=== PATIENT | female | born 1995 | race Caucasian/White ===

== ENCOUNTER 2021-03-09 15:00 | Emergency (ER) ==
[~2021-03-09] VITALS: Ht 165.1 cm; Wt 55.5 kg
[2021-03-09 15:07] VITALS: BP 116/63
== END 2021-03-09 17:26 | disposition left against medical advice (07) ==
LOC: M ED 15:00
DX: Z53.21 Procedure and treatment not carried out due to patient leaving prior to being seen by health care provider (principal)

== ENCOUNTER 2021-10-18 07:32 | Inpatient (IN) | payer OTHER ==
[2021-10-18] VITALS (8 sets, daily range): BP systolic 112–129; BP diastolic 55–80
[~2021-10-18] VITALS: Ht 160 cm; Wt 59.0 kg
[~2021-10-18 07:32] MED LIST: ACET-683 PO; ACET325C5 PO; CALC1TAB30 PO; CEPH500T PO; IRON65TA2 PO; NITR-67 PO; PRENTAB9 PO
[2021-10-18] MEDS ORDERED: PURE500C5 PO (08:24)
[2021-10-18] MEDS ORDERED: ACET-897 PO (08:25)
[2021-10-18] MEDS ORDERED: HOME MED LIST COMPLETE! XX SCH (08:25)
[2021-10-18 08:33] LABS: HEMOGLOBIN 11.9 g/dl (12.0-15.5); MEAN CORPUSCULAR HEMOGLOBIN 29.7 pg (27.0-33.0); MEAN CORPUSCULAR VOLUME 87.3 fl (80.0-96.0); PLATELET COUNT, AUTOMATED 297 10^3/uL (150-450); RED BLOOD COUNT 4.01 10^6/uL (4.00-5.40)
[2021-10-18] MEDS ORDERED: BICITRA 30ML SOLN UDC PO ONE (08:50)
[2021-10-18] MEDS ORDERED: ceFAZolin SOD 2 GM in IV 1 EA IV ONE (08:50)
[2021-10-18] MEDS ORDERED: LR 1,000 ML IV ONE (08:50)
[2021-10-18] MEDS: PRENATAL VITAMINS CHEWABLE TABLET PO SCH (09:00)
[2021-10-18] MEDS ORDERED: KETOROLAC 60MG 2ML VIAL As Ordered ONE (09:12)
[2021-10-18] MEDS ORDERED: MORPHINE PRES-FREE INJ 10 MG/10 ML VIAL As Ordered ONE (09:12)
[2021-10-18] MEDS ORDERED: ONDANSETRON 4MG 2ML VIAL As Ordered ONE ×2 (09:12→09:16)
[2021-10-18] MEDS ORDERED: OXYTOCIN INJ 10 UNITS/ML VIAL (J2590) As Ordered ONE (09:12)
[2021-10-18] MEDS ORDERED: dexameTHASONE 4 MG/ML 1ML VIAL (J1100 PER 1MG) As Ordered ONE (09:12)
[2021-10-18] MEDS ORDERED: fentaNYL 100 MCG/2 ML INJECTION As Ordered ONE (09:12)
[2021-10-18] MEDS: LR 1,000 ML IV SCH ×2 (09:13→16:48)
[2021-10-18] MEDS ORDERED: PHENYLephrine 500MCG 5ML (100MCG/ML) SYRINGE As Ordered ONE (10:38)
[2021-10-18] MEDS ORDERED: ePHEDrine SULFATE 25 MG/5 ML(5MG/ML) SYRINGE As Ordered ONE (10:38)
[2021-10-18 10:52] LABS: CORD GAS ABE V -4.2; CORD GAS PCO2 V 39.1 mmHg; CORD GAS PH V 7.348 UNITS; CORD GAS PO2 V 25.3 mmHg; CORD GAS SBC V 20.2 MEQ/L; CORD GAS TCO2 V 22.2 MEQ/L
[2021-10-18 10:55] LABS: CORD GAS ABE A -6.6; CORD GAS HCO3 A 20.2 MEQ/L; CORD GAS O2 SAT A 15.4 %; CORD GAS PH A 7.27 UNITS; CORD GAS PO2 A 10.4 mmHg; CORD GAS SBC A 17.3 MEQ/L; CORD GAS TCO2 A 21.6 MEQ/L
[2021-10-18] MEDS ORDERED: ONDANSETRON 4MG TAB PO PRN (11:10)
[2021-10-18] MEDS ORDERED: MOM 30ML SUSPENSION UDC PO PRN (11:10)
[2021-10-18] MEDS ORDERED: SIMETHICONE 80MG CHEW TAB PO PRN (11:10)
[2021-10-18] MEDS ORDERED: psoriasis cream TOP (11:52)
[2021-10-18] MEDS: KETOROLAC 30 MG/ML 1ML VIAL IV SCH ×2 (16:48→22:49)
[2021-10-18] MEDS: DOCUSATE SODIUM 100MG CAPSULE PO SCH (21:28)
[2021-10-19] VITALS (7 sets, daily range): BP systolic 112–140; BP diastolic 56–81
[2021-10-19] MEDS: KETOROLAC 30 MG/ML 1ML VIAL IV SCH (04:56)
[2021-10-19 07:56] LABS: HEMATOCRIT 25.5 % (36.0-47.0); MEAN CORPUSCULAR HEMOGLOBIN 30.5 pg (27.0-33.0); MEAN CORPUSCULAR HGB CONC 33.7 g/dl (32.0-36.5); MEAN CORPUSCULAR VOLUME 90.4 fl (80.0-96.0); PLATELET COUNT, AUTOMATED 252 10^3/uL (150-450); RED BLOOD COUNT 2.82 10^6/uL (4.00-5.40)
[2021-10-19] MEDS: DOCUSATE SODIUM 100MG CAPSULE PO SCH ×2 (07:56→20:08)
[2021-10-19] MEDS: PRENATAL VITAMINS CHEWABLE TABLET PO SCH (07:56)
[2021-10-19 08:03] LABS: HEMOGLOBIN 8.6 g/dl (12.0-15.5)
[2021-10-19] MEDS: IBUPROFEN 800 MG TAB PO SCH ×3 (13:00→23:30)
[2021-10-19] MEDS: oxyCODONE 5MG TAB PO PRN ×2 (14:44→20:09)
[2021-10-20 02:00] VITALS: BP 123/79
[2021-10-20] MEDS: oxyCODONE 5MG TAB PO PRN ×2 (02:16→07:51)
[2021-10-20 06:00] VITALS: BP 124/67
[2021-10-20] MEDS ORDERED: IBUP80TA PO (07:04)
[2021-10-20] MEDS ORDERED: PRENCHW PO (07:04)
[2021-10-20] MEDS ORDERED: COLA100C5 PO (07:04)
[2021-10-20] MEDS ORDERED: OXYC-517 PO (07:04)
[2021-10-20] MEDS: DOCUSATE SODIUM 100MG CAPSULE PO SCH (07:50)
[2021-10-20] MEDS: PRENATAL VITAMINS CHEWABLE TABLET PO SCH (07:50)
[2021-10-20] MEDS: IBUPROFEN 800 MG TAB PO SCH (07:50)
== END 2021-10-20 12:20 | disposition home or self-care (01) | DRG 773 ==
LOC: M LDI 07:32 → M OBS 12:20
PROVIDERS: ADMIT Obstetrics & Gynecology; ATTEND Obstetrics & Gynecology
PROC: 10D00Z1 Extraction of Products of Conception, Low, Open Approach (ICD-10-PCS; principal; 2021-10-18 09:30)
DX: O69.81X0 Labor and delivery complicated by cord around neck, without compression, not applicable or unspecified (principal); Z37.0 Single live birth; O99.344 Other mental disorders complicating childbirth; F32.A Depression, unspecified; F41.9 Anxiety disorder, unspecified; F43.10 Post-traumatic stress disorder, unspecified; O99.02 Anemia complicating childbirth; Z3A.39 39 weeks gestation of pregnancy

== ENCOUNTER → 2022-01-16 | Outpatient (REF) | payer OTHER ==
[~2022-01-16] MED LIST changes: +ACET-897 PO; +ASCO500C3 PO; +COLA100C5 PO; +IBUP80TA PO; +OXYC-517 PO; +PRENCHW PO; +psoriasis cream TOP
== END ==
LOC: M PLALAB 16:35
PROVIDERS: ATTEND Advanced Practice Midwife
DX: Z53.9 Procedure and treatment not carried out, unspecified reason (principal)

== ENCOUNTER → 2022-01-16 | Outpatient (REF) | payer OTHER ==
[2022-01-17 12:50] LABS: APPEARANCE, URINE MANUAL CLOUDY (CLEAR); BILIRUBIN, URINE MANUAL NEGATIVE (NEGATIVE); COLOR, URINE MANUAL DK YELLOW (YELLOW); GLUCOSE, URINE (UA) MANUAL NEGATIVE (NEGATIVE); KETONE, URINE MANUAL 1+ mg/dL (NEGATIVE); PROTEIN, URINE MANUAL TRACE mg/dL (NEGATIVE); SPECIFIC GRAVITY,URINE MANUAL 1.025 (1.002-1.035); UROBILINOGEN, URINE MANUAL NORMAL (NORMAL)
[2022-01-17 12:51] LABS: BLOOD URINE MANUAL POSITIVE (NEGATIVE); LEUKOCYTE ESTERASE, URINE MAN POSITIVE (NEGATIVE); NITRITE, URINE MANUAL POSITIVE (NEGATIVE)
[2022-01-17 13:36] LABS: BACTERIA, URINE LARGE AMOUNT; HYALINE CAST, URINE NONE SEEN /lpf (0-1); SQUAMOUS EPITHELIAL CELL URINE LARGE AMOUNT /hpf (SMALL AMT); WBC, URINE 20-30 /hpf (0-3)
[2022-01-17 13:37] LABS: AMORPHOUS SEDIMENT, URINE MOD AMOUNT (NEGATIVE); CALCIUM OXALATE CRYSTALS,URINE MOD AMOUNT /hpf; MUCUS, URINE SMALL AMOUNT (NEGATIVE)
== END ==
LOC: M SFHCWAGY 10:12
PROVIDERS: ATTEND Advanced Practice Midwife
DX: R30.0 Dysuria (principal)